=== PATIENT | female | born 1975 | race African-American/Black ===

== ENCOUNTER 2021-11-27 03:37 | Emergency (ER) | payer OTHER ==
[~2021-11-27] VITALS: Ht 162.6 cm; Wt 63.5 kg
[2021-11-27 03:40] VITALS: BP 142/81
[2021-11-27] MEDS ORDERED: MONT10TA22 PO (03:55)
--- NOTE | 2021-11-27 04:06 | NUR ---
Patient discharged to home in stable condition. Written and verbal after care instructions given. Patient verbalizes understanding of instruction.
== END 2021-11-27 04:07 | disposition home or self-care (01) ==
LOC: ER 03:37
DX: R21 Rash and other nonspecific skin eruption (principal)